=== PATIENT | female | born 1980 | race Two or more races ===

== ENCOUNTER 2017-03-06 13:03 | Outpatient (CLI) | payer OTHER ==
[~2017-03-06 13:03] MED LIST: MACROBID 100 M100 MG PO; PERCOCET 5/321 UDTAB PO
== END 2017-03-06 13:11 | disposition home or self-care (01) ==
LOC: LAB 13:03
DX: Z80.3 Family history of malignant neoplasm of breast (principal); D50.0 Iron deficiency anemia secondary to blood loss (chronic); N93.8 Other specified abnormal uterine and vaginal bleeding; N84.0 Polyp of corpus uteri; D51.8 Other vitamin B12 deficiency anemias; I10 Essential (primary) hypertension; D55.0 Anemia due to glucose-6-phosphate dehydrogenase [G6PD] deficiency; D51.0 Vitamin B12 deficiency anemia due to intrinsic factor deficiency

== ENCOUNTER 2017-05-24 13:41 | Outpatient (CLI) | payer OTHER | END 2017-05-24 13:51 | disposition home or self-care (01) | LOC: LAB 13:41 | DX: Z80.3 Family history of malignant neoplasm of breast (principal); D50.0 Iron deficiency anemia secondary to blood loss (chronic); N93.8 Other specified abnormal uterine and vaginal bleeding; N84.0 Polyp of corpus uteri; D68.8 Other specified coagulation defects; D68.0 Von Willebrand disease ==

== ENCOUNTER 2017-09-12 10:26 | Outpatient (CLI) | payer OTHER | END 2017-09-12 10:29 | disposition home or self-care (01) | LOC: SONOGRAMA 10:26 → MAMO-SONO 10:45 | DX: N93.9 Abnormal uterine and vaginal bleeding, unspecified (principal) ==

== ENCOUNTER 2018-08-10 12:17 | Emergency (ER) | payer OTHER ==
[~2018-08-10] VITALS: Ht 160 cm; Wt 72.1 kg
[2018-08-10] MEDS ORDERED: MAXFE CAPLET1 EACH PO (12:48)
[2018-08-10] MEDS ORDERED: ANALPRAM HC 2.530 GM RECTAL (15:13)
== END 2018-08-10 15:54 | disposition home or self-care (01) ==
LOC: ER 12:17
DX: K64.8 Other hemorrhoids (principal)

== ENCOUNTER 2019-08-23 17:22 | Emergency (ER) | payer OTHER ==
[~2019-08-23] VITALS: Ht 160 cm; Wt 71.2 kg
[~2019-08-23 17:22] MED LIST changes: +ANALPRAM HC 2.530 GM RECTAL; +MAXFE CAPLET1 EACH PO
[2019-08-23] MEDS ORDERED: B-6200 MG PO (20:25)
[2019-08-23] MEDS ORDERED: FOLIC ACID0.8 M1 PO (20:25)
[2019-08-23] MEDS ORDERED: VITAMIN B-121000 MC2 SL (20:25)
[2019-08-23] MEDS ORDERED: FEOSOL325 MG PO (20:25)
== END 2019-08-23 20:46 | disposition home or self-care (01) ==
LOC: ER 17:22
DX: D50.0 Iron deficiency anemia secondary to blood loss (chronic) (principal); N93.8 Other specified abnormal uterine and vaginal bleeding; R42 Dizziness and giddiness